=== PATIENT | female | born 1960 | race Caucasian/White ===

== ENCOUNTER → 2016-10-11 | Outpatient (CLI) | payer OTHER ==
[2016-10-11 15:40] LABS: BASO % 0.3 % (0.0-1.0); EOS # 0.1 10*3/uL (0.0-0.4); EOS % 0.8 % (1.0-4.0); HEMATOCRIT 41.5 % (37.0-47.0); HEMOGLOBIN 14.1 g/dl (12.0-16.0); LYMPH # 2.5 10*3/uL (1.3-4.4); LYMPH % 41.1 % (27.0-41.0); MEAN CELL VOLUME 88.1 fl (81.0-99.0); MEAN CORPUSCULAR HGB 29.9 pg (27.0-31.0); MEAN PLATELET VOLUME 9.6 fl (9.6-12.3); MONO # 0.5 10*3/uL (0.1-1.0); MONO % 8.1 % (3.0-9.0); NEUT # 3.1 10*3/uL (2.3-7.9); NEUT % 49.5 % (47.0-73.0); PLATELET COUNT AUTOMATED 285 10*3/uL (130-400); RED BLOOD COUNT 4.71 10*6/uL (4.10-5.10); RED CELL DISTRI WIDTH 12.8 % (0-14.5); WHITE BLOOD COUNT 6.2 10*3/uL (4.8-10.8)
[2016-10-11 16:11] LABS: ALKALINE PHOSPHATASE 78 U/L (45-117); BILIRUBIN, TOTAL 0.4 mg/dl (0.2-1.0); BUN 13 mg/dl (7-24); CARBON DIOXIDE 29 mmol/L (21-32); CHLORIDE 100 mmol/L (98-107); CHOLESTEROL 213 mg/dL (<200); EST GLOM FILT AFRICAN AMERICAN > 60 ml/min; GLUCOSE 89 mg/dL (65-99); HDL CHOLESTEROL 71 mg/dl (40-60); LDL CHOLESTEROL 118 mg/dL (9-159); SGOT/AST 23 IU/L (3-35); SGPT/ALT 26 U/L (12-78); SODIUM 139 mmol/L (136-145); TOTAL PROTEIN 7.9 gm/dL (6.4-8.2); TRIGLYCERIDES 118 mg/dl (<150); VLDL CHOLESTEROL 24 mg/dL (6-40)
[2016-10-11 16:40] LABS: HEMOGLOBIN A1c 5.8 % (4.8-5.6)
== END | disposition home or self-care (01) ==
LOC: MAMMO 08-16 13:00 → LAB 13:11
PROVIDERS: Family Medicine
DX: Z12.31 Encounter for screening mammogram for malignant neoplasm of breast (principal); Z00.01 Encounter for general adult medical examination with abnormal findings; E78.5 Hyperlipidemia, unspecified; I10 Essential (primary) hypertension; E66.9 Obesity, unspecified; Z72.0 Tobacco use

== ENCOUNTER 2017-04-02 11:50 | Inpatient (IN) | payer OTHER ==
[~2017-04-02] VITALS: Ht 160 cm; Wt 133.0 kg
[2017-04-02] VITALS (8 sets, daily range): BP systolic 121–151; BP diastolic 70–83
[2017-04-02] MEDS ORDERED: ONDANSETRON HYDR4 MG PO (11:55)
[2017-04-02] MEDS ORDERED: TRAMADOL HCL50 MG PO (11:55)
[2017-04-02] MEDS ORDERED: DICYCLOMINE HCL20 MG PO (11:56)
[2017-04-02] MEDS ORDERED: LISINOPRIL20 MG PO (11:57)
[2017-04-02] MEDS ORDERED: HYDROCHLOROTHIA25 M1 PO (11:57)
[2017-04-02] MEDS ORDERED: SERTRALINE HYD100 MG PO (11:57)
[2017-04-02] MEDS ORDERED: ALPRAZOLAM0.25 M2 PO (11:58)
[2017-04-02 12:58] LABS: BILIRUBIN NEGATIVE (NEGATIVE); BLOOD NEGATIVE (NEGATIVE); CLARITY SL CLOUDY (CLEAR); COLOR YELLOW (YELLOW); GLUCOSE NEGATIVE (NEGATIVE); KETONE TRACE (NEGATIVE); LEUKO ESTERASE NEGATIVE (NEGATIVE); NITRITE NEGATIVE (NEGATIVE); PH 5.5 (5.0-9.0); SPECIFIC GRAVITY 1.025 (1.005-1.030); UROBILINOGEN 0.2 E.U./dl (0.2-1.0)
[2017-04-02 13:11] LABS: BACTERIA 2+; EPITHELIAL CELLS 16-20; WBC 0-2 wbc/hpf (0-5)
--- NOTE | 2017-04-02 13:15 | NUR ---
PATIENT IS ALERT AND ORIENTED X3, SKIN IS PINK, WARM, AND DRY,RESPIRATIONS ARE EASY AND NONLABORED, PATIENT IS RESTING IN BED, CALL LIGHT IN REACH OF THE PATIENT, CONTINUING TO MONITOR THE PATIENT. RIZWANRN
[2017-04-02 13:40] LABS: BASO % 0.4 % (0.0-1.0); EOS # 0.1 10*3/uL (0.0-0.4); EOS % 1.2 % (1.0-4.0); HEMATOCRIT 39.7 % (37.0-47.0); HEMOGLOBIN 13.7 g/dl (12.0-16.0); LYMPH # 2.1 10*3/uL (1.3-4.4); LYMPH % 28.5 % (27.0-41.0); MEAN CELL VOLUME 86.9 fl (81.0-99.0); MEAN CORPUSCULAR HGB CONC 34.5 g/dl (33.0-37.0); MEAN PLATELET VOLUME 9.5 fl (9.6-12.3); MONO # 0.6 10*3/uL (0.1-1.0); MONO % 7.7 % (3.0-9.0); NEUT # 4.6 10*3/uL (2.3-7.9); NEUT % 61.9 % (47.0-73.0); PLATELET COUNT AUTOMATED 277 10*3/uL (130-400); RED BLOOD COUNT 4.57 10*6/uL (4.10-5.10); RED CELL DISTRI WIDTH 12.4 % (0-14.5); WHITE BLOOD COUNT 7.4 10*3/uL (4.8-10.8)
[2017-04-02 13:54] LABS: ALBUMIN 3.4 gm/dl (3.1-4.5); ALKALINE PHOSPHATASE 92 U/L (45-117); BUN 17 mg/dl (7-24); CHLORIDE 100 mmol/L (98-107); CREATININE 0.69 mg/dL (0.55-1.02); SGOT/AST 20 IU/L (3-35); SGPT/ALT 20 U/L (12-78); SODIUM 136 mmol/L (136-145); TOTAL PROTEIN 7.3 gm/dL (6.4-8.2)
--- NOTE | 2017-04-02 14:09 | NUR ---
PATIENT IS ALERT AND ORIENTED X3, SKIN IS PINK, WARM, AND DRY, RESPIRAITONS ARE EASY AND NONLABORED, CALL LIGHT IN REACH OF THE PATIENT, CONTINUING TO MONITOR THE PATIENT. DIANN ASTORGA
--- NOTE | 2017-04-02 17:15 | NUR ---
Time: 1714 A 56 year old FEMALE admitted to 5E under services of BHARTI CAMACHO DO. Pt. arrived via stretcher from ER. Chief complaint: RLQ ABDOMINAL PAIN. ORIENTED TO ROOM, BELONGINGS LIST FILLED OUT. IV FLUIDS FROM ER RUNNING. ASSESSMENT COMPLETE. ANTOLIN QUIROS
--- NOTE | 2017-04-02 17:40 | NUR ---
patient medications updated, varified with patient. she had been recently started on lisinopril however, she feels that lisinopril may have caused her to have hives - per her request, lisinopril removed from home medicaion list.
--- NOTE | 2017-04-02 19:02 | NUR ---
pt complians of abdominal pain 11/24, morphine given. see jun.
--- NOTE | 2017-04-02 19:50 | NUR ---
PT. AWAKE, ALERT AND ORIENTED X 3 AT THIS TIME. PT. CURRENTLY DENIES CP, SOB ON RA, AND PAIN. PT. STATED EARLIER RLQ PAIN THAT HAS SUBSIDED SINCE. PT. LUNGS DIMINISHED/CLEAR. HRR, PPP, +1 EDEMA TO LE. CALL LIGHT WITHIN REACH, BED IN LOWEST POSITION, WHEELS LOCKED.
[2017-04-03] VITALS: BP 126/83
--- NOTE | 2017-04-03 02:00 | NUR ---
PT RESTING IN BED WITH EYES CLOSED. NO DISTRESS NOTED AT THIS TIME. CALL LIGHT IN REACH.
--- NOTE | 2017-04-03 06:30 | NUR ---
SPOKE WITH DR CASTELLANOS. HE REQUESTED TO BE NOTIFIED WHEN HER LABS ARE AVAILABLE. RN WILL RELAY MESSAGE TO ONCOMMING RN.
[2017-04-03 08:00] VITALS: BP 116/52
[2017-04-03 08:13] LABS: BASO % 0.4 % (0.0-1.0); EOS # 0.1 10*3/uL (0.0-0.4); EOS % 1.1 % (1.0-4.0); HEMATOCRIT 37.1 % (37.0-47.0); HEMOGLOBIN 12.5 g/dl (12.0-16.0); LYMPH % 38.2 % (27.0-41.0); MEAN CORPUSCULAR HGB CONC 33.7 g/dl (33.0-37.0); MEAN PLATELET VOLUME 9.5 fl (9.6-12.3); MONO # 0.5 10*3/uL (0.1-1.0); MONO % 8.5 % (3.0-9.0); NEUT # 2.8 10*3/uL (2.3-7.9); NEUT % 51.6 % (47.0-73.0); PLATELET COUNT AUTOMATED 251 10*3/uL (130-400); RED BLOOD COUNT 4.17 10*6/uL (4.10-5.10); RED CELL DISTRI WIDTH 12.4 % (0-14.5); WHITE BLOOD COUNT 5.3 10*3/uL (4.8-10.8)
[2017-04-03 08:20] LABS: ALBUMIN 2.7 gm/dl (3.1-4.5); ALKALINE PHOSPHATASE 73 U/L (45-117); BUN 10 mg/dl (7-24); CHLORIDE 100 mmol/L (98-107); POTASSIUM 3.4 mmol/L (3.5-5.1); SGOT/AST 14 IU/L (3-35); SGPT/ALT 16 U/L (12-78); SODIUM 138 mmol/L (136-145); TOTAL PROTEIN 6.3 gm/dL (6.4-8.2)
--- NOTE | 2017-04-03 08:30 | NUR ---
Imaging Analyst in to talk to patient. Patient states lives at home with her daughter. There are 2 steps in the home. Physician: Dr. Charanjit Niño Pharmacy: [facility] Home health services: none Patient's level of ADLs: INDEPENDENT Patient has working utilities: yes DME: none Follow-up physician's appointment after d/c: will be made by the hospitalist nurse director upon discharge Does patient want to access PORTAL?: no Discharge plan discussed with patient. She lives at home with her 7 year old daughter. She is independent in her ADLs and ambulation. When medically stable she will be discharged to home. CHIOMA GENAO
--- NOTE | 2017-04-03 08:43 | NUR ---
DR CASTELLANOS WAS NOTIFIED OF LAB RESULTS.
[2017-04-03 08:44] LABS: VITAMIN D, 25-HYDROXY 22.2 ng/mL (30-100)
--- NOTE | 2017-04-03 10:20 | NUR ---
PATIENT REQUESTED ZOFRAN FOR NAUSEA, STATED THAT AFTER HAVING A VISITOR SHE FELT NAUSEAUS, GIVEN PER ORDER.
--- NOTE | 2017-04-03 10:47 | NUR ---
PATIENT COMPLAINS OF PAIN IN LOWER BACK 11/24. MORPHINE REQUESTED PER PATIENT, GIVEN PER PATIENT ORDER. PATIENT WALKED TO BATHROOM WITHOUT RELIEF.
--- NOTE | 2017-04-03 11:45 | NUR ---
PATIENT STATES PAIN IN BACK HAS EASED, PAIN 6/10.
[2017-04-03 12:00] VITALS: BP 117/66
--- NOTE | 2017-04-03 15:00 | NUR ---
NOTIFIED DR DANIELLE OF PATIENT COMPLAINING OF PRESSURE IN HER HEAD. PATIENT REQUESTED SOMETHING FOR SINUS OR MIGRAINE. DR DANIELLE PLACED ORDER FOR TORADOL.
--- NOTE | 2017-04-03 15:25 | NUR ---
TORADOL GIVEN AT 1522, PER PATIENT REQUEST, VIA ORDER.
--- NOTE | 2017-04-03 16:00 | NUR ---
PATIENT STATED THAT HER HEADACHE WAS SUBSIDING, PAIN 4/10.
[2017-04-03 20:00] VITALS: BP 123/69
[2017-04-04 00:39] VITALS: BP 100/50
[2017-04-04 06:30] LABS: BASO % 0.5 % (0.0-1.0); EOS # 0.1 10*3/uL (0.0-0.4); EOS % 1.2 % (1.0-4.0); HEMATOCRIT 37.5 % (37.0-47.0); HEMOGLOBIN 12.6 g/dl (12.0-16.0); LYMPH # 2.4 10*3/uL (1.3-4.4); LYMPH % 40.5 % (27.0-41.0); MEAN CELL VOLUME 86.8 fl (81.0-99.0); MEAN CORPUSCULAR HGB 29.2 pg (27.0-31.0); MEAN CORPUSCULAR HGB CONC 33.6 g/dl (33.0-37.0); MEAN PLATELET VOLUME 9.5 fl (9.6-12.3); MONO # 0.4 10*3/uL (0.1-1.0); MONO % 6.7 % (3.0-9.0); NEUT % 50.9 % (47.0-73.0); PLATELET COUNT AUTOMATED 270 10*3/uL (130-400); RED BLOOD COUNT 4.32 10*6/uL (4.10-5.10); RED CELL DISTRI WIDTH 12.3 % (0-14.5); WHITE BLOOD COUNT 5.8 10*3/uL (4.8-10.8)
[2017-04-04 06:44] LABS: BUN 11 mg/dl (7-24); CHLORIDE 102 mmol/L (98-107); POTASSIUM 3.5 mmol/L (3.5-5.1); SGPT/ALT 20 U/L (12-78); SODIUM 138 mmol/L (136-145)
[2017-04-04 06:47] LABS: ALKALINE PHOSPHATASE 78 U/L (45-117); CREATININE 0.66 mg/dL (0.55-1.02); SGOT/AST 17 IU/L (3-35); TOTAL PROTEIN 6.5 gm/dL (6.4-8.2)
--- NOTE | 2017-04-04 07:45 | NUR ---
Shift chart check completed.
--- NOTE | 2017-04-04 08:09 | NUR ---
PATIENT MEDICATED WITH IVP ZOFRAN FOR NAUSEA
[2017-04-04 08:10] VITALS: BP 132/86
--- NOTE | 2017-04-04 08:20 | NUR ---
PATIENT MEDICATED WITH IVP MORPHINE FOR PAIN 7/10 IN HER ABDOMEN AND BACK
--- NOTE | 2017-04-04 08:30 | NUR ---
Underwater Hunter Trapper in to see patient. No new needs or request at this time. When medically stable she will be discharged to home.
--- NOTE | 2017-04-04 09:09 | NUR ---
PATIENT STATES MEDICATED FOR NAUSEA AND PAIN ARE EFFECTIVE
--- NOTE | 2017-04-04 14:27 | NUR ---
PATIENT MEDICATED WITH IVP ZOFRAN FOR NAUSEA
--- NOTE | 2017-04-04 15:27 | NUR ---
PATIENT STATES MEDICATION WAS EFFECTIVE
[2017-04-04 16:00] VITALS: BP 147/75
--- NOTE | 2017-04-04 18:45 | NUR ---
PATIENT MEDICATED WITH IVP MORPHINE FOR PAIN IN HER BACK AND HEAD RATED 7/10
[2017-04-04 20:23] VITALS: BP 141/81
[2017-04-05] VITALS: BP 124/58
[2017-04-05 08:00] VITALS: BP 144/81
--- NOTE | 2017-04-05 08:30 | NUR ---
Steel Crane Operator in to see patient. No new needs or request at this time. When medically stable she will be discharged to home.
[2017-04-05] MEDS ORDERED: FLAGYL500 MG PO (10:51)
[2017-04-05] MEDS ORDERED: CIPRO500 MG PO (10:51)
--- NOTE | 2017-04-05 12:50 | NUR ---
PATIENT TOLERATED LUNCH WELL. NO NAUSEA. WILL WORK ON D/C
--- NOTE | 2017-04-05 13:09 | NUR ---
STUDENTS FROM [facility] REMOVED IV. THEY WENT OVER D/C INSTRUCTION WITH PATIENT. PATIENT VERBALIZED UNDERTADNING THAT THERE ARE SCRIPTS SENT TO PHARMACY. PATIENT IS D/C HOME.
== END 2017-04-05 13:09 | disposition home or self-care (01) | DRG 394 ==
LOC: ED 11:50 → EDHOLD 15:26 → 5E 15:26
PROVIDERS: Emergency Medicine; Family Medicine; ADMIT Emergency Medicine
DX: K35.80 Unspecified acute appendicitis (principal); Z68.42 Body mass index [BMI] 45.0-49.9, adult; E66.9 Obesity, unspecified; E78.5 Hyperlipidemia, unspecified; I10 Essential (primary) hypertension; F17.200 Nicotine dependence, unspecified, uncomplicated; F41.9 Anxiety disorder, unspecified; F32.9 Major depressive disorder, single episode, unspecified; K58.9 Irritable bowel syndrome, unspecified; Z71.6 Tobacco abuse counseling; Z82.49 Family history of ischemic heart disease and other diseases of the circulatory system

== ENCOUNTER 2017-08-17 14:10 | Inpatient (IN) | payer OTHER ==
[~2017-08-17] VITALS: Ht 160 cm; Wt 129.9 kg
--- NOTE | ~2017-08-17 | O ---
[place], [place] OPERATIVE NOTE NAME: CHRISTOPHER GUERRERO [facility] #: [id number] UNIT #: [id number] ROOM: 425 DOCTOR: IAM CASTELLANOS MD BIRTHDATE: [birth year] DOS: 08/18/2017 PREOPERATIVE DIAGNOSIS: Acute appendicitis. POSTOPERATIVE DIAGNOSIS: Acute appendicitis. PROCEDURE: Laparoscopic appendectomy. SURGEON: Iam Castellanos MD CAREER DEVELOPMENT CONSULTANT: SB. ANESTHESIA: General with endotracheal intubation. INDICATIONS: This is a 56-year-old lady admitted with acute appendicitis. It was decided to take the patient to the operating room for the above-mentioned procedure. The procedure and its complications were explained to the patient in detail preoperatively. Complications that were discussed included but were not limited to bleeding, infection, hematoma/seroma/abscess formation, prolonged postoperative pain, incisional hernia formation and damage to lying vital structures. She agreed to proceed. DESCRIPTION OF PROCEDURE: After identifying the patient, the patient was brought to the operating suite and laid in the supine position. After induction of general anesthesia, timeout procedure was called. A Borges catheter was inserted by the nursing team. The parts were then painted and draped in the usual sterile fashion and vertical incision was made just below the umbilicus. The skin and the subcutaneous tissue were incised in the line of the incision. The fascia was incised and 2 stay sutures were taken on either side with 0 Vicryl. A 12 mm Shanae port was introduced and a pneumoperitoneum was created. Under direct vision, a left lower quadrant incision of 10 mm and a suprapubic incision of 5 mm was made and appropriate size ports were introduced. The appendix was found to be acutely inflamed. It was from the surrounding structures with the help of blunt dissection. Thereafter, the base of the appendix as well as the mesoappendix was stapled across with the help of an Endo-NEO vascular stapler. The appendix was then placed in an EndoCatch bag and removed from the peritoneal cavity and sent for histopathological diagnosis. Saline was used for irrigation and after the irrigation fluid was sucked away, the area of the appendicular base was checked for hemostasis and hemostasis found to be perfect. At this point, the left lower quadrant and the suprapubic ports were removed and there was no bleeding seen. The umbilical port was also removed and the pneumoperitoneum was decompressed. The fascial defect was approximated with the help of a single [id number] 0 Vicryl suture. The subcutaneous tissue was irrigated and the edges of the skin were infiltrated with 1% plain lidocaine and approximated with the help of 4-0 Vicryl in a subcuticular running fashion. The Borges catheter was removed and the patient was extubated uneventfully and brought back to the recovery room in stable fashion. There were no complications. Dr. Iam Castellanos, the attending surgeon, was present throughout the operating case. [place], [place] OPERATIVE NOTE NAME: CHRISTOPHER GUERRERO UNIT #: [id number] ROOM: 425 DOCTOR: IAM CASTELLANOS MD BIRTHDATE: [birth year] Iam Castellanos MD CM:OPRECORD:OPERATIVE NOTE [id number] IAM CASTELLANOS MD 08/18/17 0950 interface
[~2017-08-17 14:10] MED LIST: ALPRAZOLAM0.25 M2 PO; CIPRO500 MG PO; DICYCLOMINE HCL20 MG PO; FLAGYL500 MG PO; HYDROCHLOROTHIA25 M1 PO; LISINOPRIL20 MG PO; ONDANSETRON HYDR4 MG PO; SERTRALINE HYD100 MG PO; TRAMADOL HCL50 MG PO
[2017-08-17 14:11] VITALS: BP 126/79
[2017-08-17 15:15] LABS: BASO % 0.4 % (0.0-1.0); EOS # 0.1 10*3/uL (0.0-0.4); HEMATOCRIT 41.4 % (37.0-47.0); HEMOGLOBIN 13.8 g/dl (12.0-16.0); LYMPH # 2.2 10*3/uL (1.3-4.4); LYMPH % 19.7 % (27.0-41.0); MEAN CELL VOLUME 87.7 fl (81.0-99.0); MEAN CORPUSCULAR HGB 29.2 pg (27.0-31.0); MEAN CORPUSCULAR HGB CONC 33.3 g/dl (33.0-37.0); MEAN PLATELET VOLUME 9.1 fl (9.6-12.3); MONO # 0.7 10*3/uL (0.1-1.0); MONO % 6.3 % (3.0-9.0); NEUT % 72.1 % (47.0-73.0); PLATELET COUNT AUTOMATED 267 10*3/uL (130-400); RED BLOOD COUNT 4.72 10*6/uL (4.10-5.10); RED CELL DISTRI WIDTH 12.4 % (0-14.5)
[2017-08-17 15:39] LABS: ALBUMIN 3.6 gm/dl (3.1-4.5); ALKALINE PHOSPHATASE 90 U/L (45-117); BUN 17 mg/dl (7-24); CHLORIDE 101 mmol/L (98-107); CREATININE 0.63 mg/dL (0.55-1.02); POTASSIUM 3.8 mmol/L (3.5-5.1); SGOT/AST 20 IU/L (3-35); SGPT/ALT 21 U/L (12-78); SODIUM 137 mmol/L (136-145); TOTAL PROTEIN 7.4 gm/dL (6.4-8.2)
[2017-08-17 20:00] VITALS: BP 124/63
[2017-08-17 21:34] LABS: BILIRUBIN NEGATIVE (NEGATIVE); BLOOD NEGATIVE (NEGATIVE); CLARITY CLEAR (CLEAR); COLOR YELLOW (YELLOW); GLUCOSE NEGATIVE (NEGATIVE); KETONE 1+ (NEGATIVE); LEUKO ESTERASE NEGATIVE (NEGATIVE); NITRITE NEGATIVE (NEGATIVE); PH 6.5 (5.0-9.0); UROBILINOGEN 0.2 E.U./dl (0.2-1.0)
[2017-08-17 21:52] LABS: RBC 0-2 rbc/hpf (0-2)
[2017-08-17 21:53] LABS: BACTERIA 1+
[2017-08-18] VITALS (11 sets, daily range): BP systolic 103–130; BP diastolic 50–80
[2017-08-18 07:12] LABS: BASO % 0.2 % (0.0-1.0); EOS % 0.2 % (1.0-4.0); HEMATOCRIT 37.6 % (37.0-47.0); HEMOGLOBIN 12.5 g/dl (12.0-16.0); LYMPH % 8.3 % (27.0-41.0); MEAN CELL VOLUME 88.5 fl (81.0-99.0); MEAN CORPUSCULAR HGB 29.4 pg (27.0-31.0); MEAN CORPUSCULAR HGB CONC 33.2 g/dl (33.0-37.0); MEAN PLATELET VOLUME 9.5 fl (9.6-12.3); MONO # 0.7 10*3/uL (0.1-1.0); MONO % 5.7 % (3.0-9.0); NEUT % 85.3 % (47.0-73.0); PLATELET COUNT AUTOMATED 239 10*3/uL (130-400); RED BLOOD COUNT 4.25 10*6/uL (4.10-5.10); RED CELL DISTRI WIDTH 12.5 % (0-14.5); WHITE BLOOD COUNT 11.7 10*3/uL (4.8-10.8)
[2017-08-18 07:25] LABS: ACT PARTIAL THROMBO TIME 27.8 SECONDS (20.8-31.5)
[2017-08-18 07:39] LABS: BUN 15 mg/dl (7-24); CHLORIDE 102 mmol/L (98-107); CHOLESTEROL 182 mg/dL (<200); PHOSPHOROUS 3.4 mg/dL (2.5-4.9); POTASSIUM 3.3 mmol/L (3.5-5.1); SGOT/AST 12 IU/L (3-35); SGPT/ALT 17 U/L (12-78); SODIUM 138 mmol/L (136-145); TOTAL PROTEIN 6.1 gm/dL (6.4-8.2); TRIGLYCERIDES 63 mg/dl (<150); VLDL CHOLESTEROL 13 mg/dL (6-40)
[2017-08-18 07:40] LABS: ALKALINE PHOSPHATASE 70 U/L (45-117); HDL CHOLESTEROL 54 mg/dl (40-60); LDL CHOLESTEROL 115 mg/dL (9-159)
[2017-08-18] MEDS ORDERED: NORCO 5-325 TA1 EACH PO (08:58)
[2017-08-18] MEDS ORDERED: VITAMIN D5000 UNI1 PO (14:27)
== END 2017-08-18 16:09 | disposition home or self-care (01) | DRG 342 ==
LOC: ED 14:10 → EDHOLD 17:30 → 4E 17:30
PROVIDERS: Family Medicine; Student in an Organized Health Care Education/Training Program
PROC: 0DTJ4ZZ Resection of Appendix, Percutaneous Endoscopic Approach (ICD-10-PCS; principal; 2017-08-18)
DX: K35.80 Unspecified acute appendicitis (principal); Z68.43 Body mass index [BMI] 50.0-59.9, adult; K76.0 Fatty (change of) liver, not elsewhere classified; E66.01 Morbid (severe) obesity due to excess calories; D72.829 Elevated white blood cell count, unspecified; K58.9 Irritable bowel syndrome, unspecified; F41.9 Anxiety disorder, unspecified; F32.9 Major depressive disorder, single episode, unspecified; E78.5 Hyperlipidemia, unspecified; F17.210 Nicotine dependence, cigarettes, uncomplicated; I10 Essential (primary) hypertension; R73.03 Prediabetes; E87.6 Hypokalemia; E55.9 Vitamin D deficiency, unspecified; Z88.8 Allergy status to other drugs, medicaments and biological substances; Z79.899 Other long term (current) drug therapy; Z82.49 Family history of ischemic heart disease and other diseases of the circulatory system; Z71.6 Tobacco abuse counseling